=== PATIENT | male | born 1945 | race Caucasian/White ===

== ENCOUNTER 2018-09-05 16:43 | Emergency (ER) | payer MEDICARE, OTHER ==
[~2018-09-05] VITALS: Ht 177.8 cm; Wt 72.7 kg
[~2018-09-05 16:43] MED LIST: ATOR40TA3 PO; BUPR100T4 PO; BUSP10TA11 PO; CHOL400T32 PO; GABA-532 PO; GLIP10TA11 PO; GLU850T PO; LEVO25TA2 PO; LORA-660 PO
[2018-09-05 17:51] LABS: CLARITY,URINE CLEAR (Clear); COLOR,URINE YELLOW (Yellow); GLUCOSE, URINE >=1000 mg/dl (Neg); KETONES,URINE NEGATIVE (Neg); LEUKOCYTE ESTERASE ,URINE NEGATIVE (Neg); NITRITES, URINE NEGATIVE (Neg); OCCULT BLOOD,URINE NEGATIVE (Neg); PH,URINE 5.5 (4.8-8.0); PROTEIN,URINE TRACE mg/dl (Neg); UROBILINOGEN,URINE 0.2 E.U/dL (0.2-1.0)
[2018-09-05 17:56] LABS: UA COLLECTION TYPE CLN CATCH MIDSTREAM
[2018-09-05 17:57] LABS: SQUAMOUS EPITHELIAL CELL,UR MODERATE /LPF (FEW)
[2018-09-05 17:58] LABS: BACTERIA,URINE FEW /HPF (Neg); RBC,URINE 0-2 /HPF (0-2); WBC,URINE 0-4 /HPF (0-4)
[2018-09-05 18:08] LABS: BASOPHILS % (AUTO) 0.5 % (0-1); EOSINOPHILS # (AUTO) 0.1 X10'3 (0-0.9); EOSINOPHILS % (AUTO) 0.8 % (0-6); HEMATOCRIT 42.6 % (42.0-52.0); HEMOGLOBIN 14.1 g/dl (14.0-17.9); LYMPHOCYTES # (AUTO) 0.8 X10'3 (1.1-4.8); LYMPHOCYTES % (AUTO) 7.6 % (21-51); MEAN CORPUSCULAR HEMOGLOBIN 29.5 PG (27.0-31.0); MEAN CORPUSCULAR HGB CONC 33.2 % (33.0-36.5); MEAN CORPUSCULAR VOLUME 88.8 FL (78-98); MEAN PLATELET VOLUME 7.6 FL (7.4-10.4); MONOCYTES # (AUTO) 0.5 X10'3 (0-0.9); MONOCYTES % (AUTO) 5.3 % (2-12); NEUTROPHILS # (AUTO) 8.8 X10'3 (1.8-7.7); NEUTROPHILS % (AUTO) 85.8 % (42-75); PLATELET COUNT 195 X10'3 (140-440); RED CELL DISTRIBUTION WIDTH 13.5 % (11.5-14.5); WHITE BLOOD COUNT 10.2 X10'3 (4.5-11.0)
[2018-09-05] MEDS ORDERED: acetaminophen 325mg tablet PO ONE (18:15)
[2018-09-05 18:44] LABS: PARTIAL THROMBOPLASTIN TIME 29 SECONDS (22-32); PROTHROMBIN TIME 9.9 SECONDS (9.0-12.0)
[2018-09-05 18:48] LABS: ALANINE AMINOTRANSFERASE 22 U/L (12-78); ALBUMIN 3.7 G/DL (3.4-5.0); ALBUMIN/GLOBULIN RATIO 0.9 (1.1-1.5); ALKALINE PHOSPHATASE 70 IU/L (46-116); ANION GAP 12 (8-16); ASPARTATE AMINO TRANSFERASE 18 U/L (10-37); BILIRUBIN,TOTAL 0.4 MG/DL (0.1-1.0); BLOOD UREA NITROGEN 27 MG/DL (7-18); BUN/CREATININE RATIO 20.6 (5.4-32.0); CALCIUM 9.1 MG/DL (8.5-10.1); CHLORIDE 96 MMOL/L (99-107); CREATININE 1.31 MG/DL (0.60-1.10); GLUCOSE 152 MG/DL (70-104); POTASSIUM 3.8 MMOL/L (3.5-5.1); SODIUM 133 MMOL/L (135-145); TOTAL CARBON DIOXIDE 25.5 MMOL/L (24-32); TOTAL PROTEIN 7.6 G/DL (6.4-8.2); eGFR 54 ML/MIN
[2018-09-05] MEDS ORDERED: normal saline 1000ML IV soln IVB ONE (19:35)
[2018-09-05] MEDS ORDERED: CefTRIAXone 2gm/D5W 50ml 50 ML IV ONE (20:50)
[2018-09-05] MEDS ORDERED: ROBCFL PO (22:13)
[2018-09-05] MEDS ORDERED: TAM75C PO (22:13)
[2018-09-05] MEDS ORDERED: LEVO750T21 PO (22:13)
[2018-09-05 23:01] VITALS: BP 127/80
== END 2018-09-05 23:03 | disposition home or self-care (01) ==
LOC: ER 16:43
DX: R50.9 Fever, unspecified (principal); R10.30 Lower abdominal pain, unspecified; R19.7 Diarrhea, unspecified; R30.0 Dysuria; E11.9 Type 2 diabetes mellitus without complications; Z98.890 Other specified postprocedural states; Z79.84 Long term (current) use of oral hypoglycemic drugs; Z79.899 Other long term (current) drug therapy
CPT/HCPCS: 36415; 71045; 74176; 80053; 81001; 83605; 84145; 85025; 85610; 85730; 87040; 87081; 87502; 87503; 87880; 96365; 99284; J0696; J7030; 87077

== ENCOUNTER 2020-02-06 20:14 | Emergency (ER) | payer OTHER, MEDICARE ==
[~2020-02-06] VITALS: Ht 175.3 cm; Wt 73.6 kg
[~2020-02-06 20:14] MED LIST changes: -ATOR40TA3 PO; +ATOR40TA7 PO
[2020-02-06 20:43] LABS: BASOPHILS # (AUTO) 0.1 X10'3 (0-0.2); BASOPHILS % (AUTO) 1.1 % (0-1); EOSINOPHILS # (AUTO) 0.9 X10'3 (0-0.9); EOSINOPHILS % (AUTO) 8.9 % (0-6); HEMATOCRIT 37.9 % (42.0-52.0); HEMOGLOBIN 12.4 g/dl (14.0-17.9); LYMPHOCYTES # (AUTO) 2.1 X10'3 (1.1-4.8); LYMPHOCYTES % (AUTO) 20.9 % (21-51); MEAN CORPUSCULAR HEMOGLOBIN 29.4 PG (27.0-31.0); MEAN CORPUSCULAR HGB CONC 32.8 g/dL (33.0-36.5); MEAN CORPUSCULAR VOLUME 89.7 FL (78-98); MEAN PLATELET VOLUME 7.7 FL (7.4-10.4); MONOCYTES # (AUTO) 0.7 X10'3 (0-0.9); MONOCYTES % (AUTO) 6.9 % (2-12); NEUTROPHILS # (AUTO) 6.4 X10'3 (1.8-7.7); NEUTROPHILS % (AUTO) 62.2 % (42-75); PLATELET COUNT 273 X10'3 (140-440); RED BLOOD COUNT 4.22 X10'6 (4.70-6.10); WHITE BLOOD COUNT 10.2 X10'3 (4.5-11.0)
[2020-02-06 21:02] LABS: ALANINE AMINOTRANSFERASE 22 U/L (12-78); ALBUMIN 3.7 G/DL (3.4-5.0); ALKALINE PHOSPHATASE 70 IU/L (46-116); ANION GAP 19 (8-16); ASPARTATE AMINO TRANSFERASE 16 U/L (10-37); BILIRUBIN,TOTAL 0.3 MG/DL (0.1-1.0); BLOOD UREA NITROGEN 26 MG/DL (7-18); BUN/CREATININE RATIO 19.7 (5.4-32.0); CHLORIDE 104 MMOL/L (99-107); CREATININE 1.32 MG/DL (0.60-1.10); GLUCOSE 162 MG/DL (70-104); POTASSIUM 4.4 MMOL/L (3.5-5.1); SODIUM 142 MMOL/L (135-145); TOTAL CARBON DIOXIDE 19.2 MMOL/L (24-32); TOTAL PROTEIN 7.4 G/DL (6.4-8.2); eGFR 53 ML/MIN
[2020-02-06] MEDS ORDERED: normal saline 1000ML IV soln IV ONE (22:30)
--- NOTE | 2020-02-06 23:00 | NUR ---
PT STATES UNABLE TO URINATE FOR SAMPLE AT THIS TIME. GIVEN URINAL FOR WHEN NEED ARISES AND INFORMED OF NEED CHHAYA
--- NOTE | 2020-02-06 23:25 | NUR ---
VASCULAR IN ROOM WITH PT PERFORMING STUDY
[2020-02-07 00:37] LABS: CLARITY,URINE CLEAR (Clear); COLOR,URINE YELLOW (Yellow); GLUCOSE, URINE NEGATIVE (Neg); KETONES,URINE NEGATIVE (Neg); LEUKOCYTE ESTERASE ,URINE NEGATIVE (Neg); NITRITES, URINE NEGATIVE (Neg); OCCULT BLOOD,URINE NEGATIVE (Neg); PH,URINE 5.5 (4.8-8.0); PROTEIN,URINE NEGATIVE (Neg); UA COLLECTION TYPE URINAL; UROBILINOGEN,URINE 0.2 E.U/dL (0.2-1.0)
[2020-02-07] MEDS ORDERED: BUSP10TA11 PO ×2 (00:44→00:50)
[2020-02-07] MEDS ORDERED: BUSP10TA3 PO (00:44)
[2020-02-07] MEDS ORDERED: BUSP10TA10 PO (00:44)
[2020-02-07] MEDS ORDERED: METF500T PO (00:50)
[2020-02-07] MEDS ORDERED: EZET10TA6 PO (00:52)
--- NOTE | 2020-02-07 00:52 | NUR ---
PER EDNC TAYLER, ORDER 1 LITER NORMAL SALINE BOLUS NOW. MARTA PANTOJA
[2020-02-07] MEDS ORDERED: normal saline 1000ml 1,000 ML IV ONE (00:55)
[2020-02-07] MEDS ORDERED: ASCO500C15 PO (01:08)
[2020-02-07] MEDS ORDERED: MULT-1085 PO (01:08)
[2020-02-07] MEDS ORDERED: ASPI-1265 PO (01:08)
[2020-02-07] MEDS ORDERED: METH500T6 PO (01:08)
[2020-02-07] MEDS ORDERED: CYAN100097 PO (01:08)
[2020-02-07] MEDS ORDERED: PANT40TA4 PO (01:08)
[2020-02-07] MEDS ORDERED: ALOG25TA2 PO (01:08)
[2020-02-07 02:55] VITALS: BP 112/67
== END 2020-02-07 02:45 | disposition home or self-care (01) ==
LOC: ER 20:15
DX: M79.602 Pain in left arm (principal); R74.0 Nonspecific elevation of levels of transaminase and lactic acid dehydrogenase [LDH]; R06.02 Shortness of breath; R11.0 Nausea; E11.9 Type 2 diabetes mellitus without complications; G89.29 Other chronic pain; F41.9 Anxiety disorder, unspecified; F32.9 Major depressive disorder, single episode, unspecified; Z87.01 Personal history of pneumonia (recurrent); Z98.890 Other specified postprocedural states; Z79.82 Long term (current) use of aspirin; Z79.899 Other long term (current) drug therapy
CPT/HCPCS: 36415; 71045; 80053; 81003; 83605; 84145; 84484; 85025; 87040; 93005; 93971; 99285; J7030